=== PATIENT | female | born 1965 | race Caucasian/White ===

== ENCOUNTER 2021-04-07 14:37 | Inpatient (IN) | payer OTHER ==
[~2021-04-07] VITALS: Ht 167.6 cm; Wt 55.5 kg
[2021-04-07 15:17] LABS: BASOPHIL 0.7 % (0-2); EOSINOPHIL 3.7 % (0-5); HCT 43.5 % (37.0-47.0); HGB 12.8 g/dl (12.5-16.0); LYMPHOCYTE 19.5 % (15-48); MCH 30.4 pg (25.0-31.0); MCHC 29.4 g/dL (32.0-36.0); MCV 103.3 fL (78.0-100.0); MONOCYTE 8.4 % (0-12); MPV 12.2 fL (6.0-9.5); NEUTROPHIL 67.3 % (41-80); NRBC 0; PLT 323 K/uL (150-400); RBC 4.21 M/uL (4.20-5.40); RDW 15.7 % (11.5-14.0); WBC 11.4 K/uL (4.0-10.5)
[2021-04-07 15:30] LABS: BILIRUBIN NEGATIVE (NEGATIVE); BLOOD 2+ Ery/uL (NEGATIVE); CLARITY HAZY (CLEAR); COLOR YELLOW (YELLOW); GLUCOSE (U) NORMAL (NORMAL); LEUKOCYTES 3+ Leu/uL (NEGATIVE); NITRITE NEGATIVE (NEGATIVE); PROTEIN TRACE (LOW) mg/dL (NEGATIVE); UROBILINOGEN 0.2 mg/dL (0.2-1.0)
[2021-04-07 15:33] LABS: INR 1.07 (0.9-1.2); PROTHROMBIN TIME 13.3 SECONDS (11.8-13.4)
[2021-04-07 15:40] LABS: BACTERIA 4+; URINARY WBC 20-50
[2021-04-07 15:47] LABS: ALBUMIN 3.3 g/dL (3.4-5.0); BILIRUBIN - TOTAL 0.3 mg/dL (0.2-1.0); BUN/CREAT RATIO (CALC) 74.1 RATIO; C-REACTIVE PROTEIN 0.4 mg/dL (<=0.90); CREATININE 0.81 mg/dL (0.51-0.95); FT4 (FREE T4) 0.7 ng/dL (0.76-1.46); GLOBULIN (CALCULATION) 4.7 g/dL; MAGNESIUM 2.9 mg/dL (1.8-2.4); POTASSIUM 3.4 mmol/L (3.5-5.1)
[2021-04-07 16:07] LABS: CORONAVIRUS 2019 SARS-COV-2 NEGATIVE (NEGATIVE); INFLUENZA A NAA NEGATIVE (NEGATIVE)
[2021-04-07 22:36] LABS: BUN/CREAT RATIO (CALC) 71.6 RATIO; CREATININE 0.74 mg/dL (0.51-0.95); POTASSIUM 3.3 mmol/L (3.5-5.1)
--- NOTE | 2021-04-08 04:49 | NUR ---
PATIENT HISTORY OBTAINED FROM PAPERWORK SENT FROM [facility].
[2021-04-08] MEDS ORDERED: ASPIRIN EC81 MG PO (05:14)
[2021-04-08] MEDS ORDERED: 8 HOUR650 MG PO (05:14)
[2021-04-08] MEDS ORDERED: PLAVIX75 MG PO (05:15)
[2021-04-08] MEDS ORDERED: LIPITOR40 MG PO (05:15)
[2021-04-08] MEDS ORDERED: KEPPRA100 MG/11 GT (05:16)
[2021-04-08] MEDS ORDERED: SYNTHROID25 MCG PO (05:17)
[2021-04-08] MEDS ORDERED: NORCO 5-325 TA1 EACH PO (05:18)
[2021-04-08] MEDS ORDERED: PROAMATINE5 MG GT (05:18)
[2021-04-08] MEDS ORDERED: VENTOLIN HFA IN18 GM INH (05:19)
--- NOTE | 2021-04-08 06:32 | NUR ---
PATIENT IS CURRENTLY USING FIBERSOURCE HN TUBE FEEDING AT 55ML/HR AND 50ML H20 FLUSH Q4HR.
[2021-04-08 06:43] LABS: BASOPHIL 0.5 % (0-2); EOSINOPHIL 4.1 % (0-5); HCT 35.7 % (37.0-47.0); HGB 10.6 g/dl (12.5-16.0); LYMPHOCYTE 17.2 % (15-48); MCH 30.3 pg (25.0-31.0); MCHC 29.7 g/dL (32.0-36.0); MONOCYTE 7.5 % (0-12); MPV 12.5 fL (6.0-9.5); NEUTROPHIL 70.3 % (41-80); NRBC 0; PLT 231 K/uL (150-400); RDW 15.3 % (11.5-14.0); WBC 11.2 K/uL (4.0-10.5)
[2021-04-08 07:22] LABS: BUN/CREAT RATIO (CALC) 69.2 RATIO; CREATININE 0.65 mg/dL (0.51-0.95); POTASSIUM 3.2 mmol/L (3.5-5.1)
--- NOTE | 2021-04-08 13:19 | NUR ---
PT TO RETURN TO [facility]. THEY WILL ACCEPT HER BACK. SENT CLINICALS [facility] HAS TO SECURE A NEW AUTH. PT. WILL ALSO NEED A COVID BEFORE RETURNING BACK TO [facility].
[2021-04-08 14:47] LABS: BUN/CREAT RATIO (CALC) 65.6 RATIO; CREATININE 0.61 mg/dL (0.51-0.95); POTASSIUM 3.9 mmol/L (3.5-5.1)
[2021-04-08 20:52] LABS: BUN/CREAT RATIO (CALC) 56.2 RATIO; CREATININE 0.64 mg/dL (0.51-0.95); POTASSIUM 3.9 mmol/L (3.5-5.1)
[2021-04-09 01:42] LABS: BUN/CREAT RATIO (CALC) 52.5 RATIO; CREATININE 0.61 mg/dL (0.51-0.95); POTASSIUM 3.9 mmol/L (3.5-5.1)
[2021-04-09 05:46] LABS: BASOPHIL 0.4 % (0-2); EOSINOPHIL 2.6 % (0-5); HCT 33.9 % (37.0-47.0); HGB 10.4 g/dl (12.5-16.0); LYMPHOCYTE 9.6 % (15-48); MCHC 30.7 g/dL (32.0-36.0); MCV 100.9 fL (78.0-100.0); MONOCYTE 6.2 % (0-12); MPV 12.3 fL (6.0-9.5); NEUTROPHIL 80.9 % (41-80); NRBC 0; PLT 229 K/uL (150-400); RBC 3.36 M/uL (4.20-5.40); RDW 14.9 % (11.5-14.0); WBC 9.9 K/uL (4.0-10.5)
[2021-04-09 06:44] LABS: BUN/CREAT RATIO (CALC) 20.6 RATIO; CREATININE 1.6 mg/dL (0.51-0.95); POTASSIUM 3.7 mmol/L (3.5-5.1)
--- NOTE | 2021-04-09 16:43 | NUR ---
PER JENY PT HAS BEEN APPROVED TO RETURN TO [facility] ON 04/10/21. REPORT NUMBER IS [id number] FAX NUMBER FOR DC SUMMARY IS [phone]
[2021-04-10 06:47] LABS: BUN/CREAT RATIO (CALC) 36.6 RATIO; CREATININE 0.71 mg/dL (0.51-0.95); POTASSIUM 2.9 mmol/L (3.5-5.1)
[2021-04-10 14:35] LABS: BUN/CREAT RATIO (CALC) 37.3 RATIO; CREATININE 0.67 mg/dL (0.51-0.95); POTASSIUM 3.2 mmol/L (3.5-5.1)
[2021-04-11 06:04] LABS: BASOPHIL 0.3 % (0-2); EOSINOPHIL 0.4 % (0-5); HGB 9.3 g/dl (12.5-16.0); LYMPHOCYTE 9.6 % (15-48); MCH 30.7 pg (25.0-31.0); MCV 102.3 fL (78.0-100.0); MONOCYTE 5.9 % (0-12); MPV 13.1 fL (6.0-9.5); NEUTROPHIL 83.3 % (41-80); NRBC 0; RBC 3.03 M/uL (4.20-5.40); RDW 14.5 % (11.5-14.0); WBC 9.8 K/uL (4.0-10.5)
[2021-04-11 06:20] LABS: BUN/CREAT RATIO (CALC) 47.3 RATIO; CREATININE 0.55 mg/dL (0.51-0.95); POTASSIUM 3.7 mmol/L (3.5-5.1)
[2021-04-11 06:36] LABS: PLT 187 K/uL (150-400)
[2021-04-12 06:40] LABS: BUN/CREAT RATIO (CALC) 46.9 RATIO; CREATININE 0.49 mg/dL (0.51-0.95)
[2021-04-12 06:53] LABS: POTASSIUM 2.7 mmol/L (3.5-5.1)
--- NOTE | 2021-04-12 12:42 | NUR ---
Discussed current TF order with ALPHONSE Mcfarland; recommendations shared to increase total regime to meet needs: recs placed in chart and EMR. RN shared pt poss d/c back this afternoon. will await POC to determine new orders for EN
--- NOTE | 2021-04-12 12:44 | NUR ---
Discussed with MD Shea current EN support and information received from [facility] re: previous TF goals. REcommendations to make changes to current order if d/c not anticipated. will await labs and CT for POC.
[2021-04-12 14:30] LABS: BUN/CREAT RATIO (CALC) 47.6 RATIO; CREATININE 0.42 mg/dL (0.51-0.95)
[2021-04-12 14:41] LABS: POTASSIUM 4.2 mmol/L (3.5-5.1)
[2021-04-13 07:04] LABS: BASOPHIL 0.4 % (0-2); EOSINOPHIL 4.1 % (0-5); HCT 30.9 % (37.0-47.0); HGB 9.8 g/dl (12.5-16.0); LYMPHOCYTE 13.9 % (15-48); MCH 29.9 pg (25.0-31.0); MCHC 31.7 g/dL (32.0-36.0); MONOCYTE 5.9 % (0-12); MPV 12.1 fL (6.0-9.5); NEUTROPHIL 75.2 % (41-80); NRBC 0; PLT 298 K/uL (150-400); RBC 3.28 M/uL (4.20-5.40); RDW 13.8 % (11.5-14.0); WBC 9.6 K/uL (4.0-10.5)
[2021-04-13 07:09] LABS: MCV 94.2 fL (78.0-100.0)
[2021-04-13 07:11] LABS: CREATININE 0.5 mg/dL (0.51-0.95); POTASSIUM 3.2 mmol/L (3.5-5.1)
[2021-04-15 09:22] LABS: HCT 34.2 % (37.0-47.0); HGB 11.1 g/dl (12.5-16.0); MCHC 32.5 g/dL (32.0-36.0); MCV 92.4 fL (78.0-100.0); MPV 11.2 fL (6.0-9.5); RBC 3.7 M/uL (4.20-5.40); WBC 11.2 K/uL (4.0-10.5)
[2021-04-15 09:29] LABS: BUN/CREAT RATIO (CALC) 41.5 RATIO; CREATININE 0.41 mg/dL (0.51-0.95); POTASSIUM 3.8 mmol/L (3.5-5.1)
--- NOTE | 2021-04-15 12:53 | NUR ---
spoke with ALPHONSE Stockton re: patient plan to transfer to another facility: confirmed TF's continuous @55cc/hr; [id number] 2 units (60cc) per day with flush. Kath to place modular protein on EMar for nursing.
--- NOTE | 2021-04-16 01:27 | NUR ---
LATE ENTRY: 2214 REPORT CALLED TO [facility] TO NURSE CIELO BARBER RN . ACCEPTING PHYSICIAN DR. ZIMMER. ADMITTED TO 4L4. 2219 [facility] NOTFIED OF TRANSFER TO [facility], REQUESTED NURSE AT [facility] CONTACT HIM UPON ARRIVAL. 2224 [facility] NOTFIFED TO TRANPORT TO [facility]. 2345 [facility] HERE TO TRANSSFER TO [facility] REPORT GIVEN WITH PAPERWORK. TRANSPORTED VIA [facility] EX[facility]AC[facility] IN STABLE CONDITION. [facility] NOTFIED OF PENDING ARRIVAL AND TO CONTACT BROTHER UPON ARRIVAL.
== END 2021-04-16 00:20 | disposition other institution (70) | DRG 871 ==
LOC: FER 14:37 → FMS 04-08 00:50
PROVIDERS: Emergency Medicine; Family Medicine; Internal Medicine; Nurse Practitioner; ADMIT Internal Medicine
PROC: 0T9B70Z Drainage of Bladder with Drainage Device, Via Natural or Artificial Opening (ICD-10-PCS; principal; 2021-04-07)
DX: A41.9 Sepsis, unspecified organism (principal); G92.8 Other toxic encephalopathy; I63.89 Other cerebral infarction; I21.A1 Myocardial infarction type 2; E43 Unspecified severe protein-calorie malnutrition; N39.0 Urinary tract infection, site not specified; I69.354 Hemiplegia and hemiparesis following cerebral infarction affecting left non-dominant side; E87.0 Hyperosmolality and hypernatremia; N17.9 Acute kidney failure, unspecified; Z68.1 Body mass index [BMI] 19.9 or less, adult; E86.0 Dehydration; R65.20 Severe sepsis without septic shock; Z66 Do not resuscitate; L89.151 Pressure ulcer of sacral region, stage 1; Z20.822 Contact with and (suspected) exposure to COVID-19; I69.391 Dysphagia following cerebral infarction; R13.10 Dysphagia, unspecified; D53.9 Nutritional anemia, unspecified; E87.6 Hypokalemia; D32.0 Benign neoplasm of cerebral meninges; K21.9 Gastro-esophageal reflux disease without esophagitis; E78.5 Hyperlipidemia, unspecified; E03.9 Hypothyroidism, unspecified; F41.9 Anxiety disorder, unspecified; F32.A Depression, unspecified; H40.9 Unspecified glaucoma; H54.62 Unqualified visual loss, left eye, normal vision right eye; J45.909 Unspecified asthma, uncomplicated; Z86.16 Personal history of COVID-19; Z87.01 Personal history of pneumonia (recurrent); Z88.2 Allergy status to sulfonamides; Z88.5 Allergy status to narcotic agent; Z79.82 Long term (current) use of aspirin; Z79.899 Other long term (current) drug therapy; Z79.02 Long term (current) use of antithrombotics/antiplatelets; Z93.1 Gastrostomy status; Z87.442 Personal history of urinary calculi; Z89.411 Acquired absence of right great toe; Z98.890 Other specified postprocedural states
CPT/HCPCS: 36415; 36600; 70450; 70551; 70552; 71250; 80048; 80053; 80061; 81001; 82140; 82607; 82803; 83540; 83550; 83605; 83615; 83735; 83880; 84145; 84439; 84443; 84484; 85025; 85610; 86140; 87040; 87088; 93005; 94760; 94762; 97110; 97162; 97166; 97530; 97530-GP; 97535; A9579; J0696; J1650; J2543; J3475; J3480; J7040; J7512; U0002